=== PATIENT | male | born 1995 ===

== ENCOUNTER 2017-05-05 04:01 | Emergency (ER) | payer OTHER ==
[2017-05-05 04:23] VITALS: O2SAT 97
[2017-05-05] MEDS ORDERED: Morphine 4 MG/ML VIAL ONE (06:16)
[2017-05-05 06:20] LABS: BLOOD UREA NITROGEN 12 mg/dl (9-20); GFR AFRICAN-AMERICAN > 60; GFR NON-AFRICAN AMERICAN > 60
[2017-05-05 06:22] LABS: BASO % 0.2 % (0.0-2.0); EOS # 0.1 K/uL (0.0-0.7); EOS % 0.4 % (0.0-4.0); HEMOGLOBIN 15.7 g/dL (12.0-18.0); LYMPH % 11.2 % (20.0-40.0); MEAN CELL VOLUME 87.1 fl (80.0-94.0); MEAN CORPUSCULAR HEMOGLOBIN 29.8 pg (27.0-31.0); MEAN CORPUSCULAR HGB CONC 34.3 g/dL (33.0-37.0); MEAN PLATELET VOLUME 8.1 fl (7.2-11.7); MONO # 1.8 K/uL (0.0-0.8); MONO % 10.4 % (0.0-10.0); NEUT # 13.6 K/uL (1.8-7.0); NEUT % 77.8 % (50.0-75.0); NRBC % 0.1 % (0.0-0.0); RBC 5.27 Mil/uL (4.40-5.90); RED CELL DISTRIBUTION WIDTH 12.4 % (11.5-14.5); WHITE BLOOD COUNT 17.5 K/uL (4.8-10.8)
[2017-05-05] MEDS ORDERED: Iohexol 300 100 ML IJ ONE (06:32)
[2017-05-05] MEDS ORDERED: Sodium Chloride 0.9% 100 ML ONE (06:32)
[2017-05-05 06:54] LABS: INR 1.1 (0.9-1.2); PARTIAL THROMBOPLASTIN TIME 27.3 Seconds (25.6-37.1); PROTHROMBIN TIME 12.4 Seconds (9.8-13.1)
--- NOTE | 2017-05-05 07:13 | ED PDOC ---
HPI: Abdomen Time Seen by Provider: 05/05/17 04:17 Chief Complaint (Nursing): GI Problem Chief Complaint (Provider): abdominal pain History Per: Patient History/Exam Limitations: no limitations Onset/Duration Of Symptoms: Days (2x) Current Symptoms Are (Timing): Still Present Location Of Pain/Discomfort: Suprapubic Quality Of Discomfort: "Pain" Associated Symptoms: Diarrhea, Other (bloody stool ) Additional Complaint(s): 21 year old male presents to the ED complaining of abdominal pain onset two days ago. Reports of associated symptoms of diarrhea and bloody stool. Denies vomiting, fever, or sick contacts. Patient took Bismol for pain. Also states it the first time he has felt this way. PMD: Provider TBD Past Medical History Reviewed: Historical Data, Nursing Documentation, Vital Signs Vital Signs: Last Vital Signs Temp 98.6 F 05/05/17 09:00 Pulse 85 05/05/17 09:00 Resp 19 05/05/17 09:00 BP 132/74 05/05/17 09:00 Pulse Ox 97 05/05/17 11:28 - Medical History PMH: No Chronic Diseases - Surgical History Surgical History: No Surg Hx - Family History Family History: States: No Known Family Hx - Home Medications Home Medications: Ambulatory Orders Medication Instructions Recorded Acetaminophen [Tylenol 325mg tab] 650 mg PO Q6H PRN #50 tab 05/05/17 Ciprofloxacin [Cipro] 500 mg PO BID #20 tab 05/05/17 metroNIDAZOLE [Flagyl] 500 mg PO TID #10 tab 05/05/17 - Allergies Allergies/Adverse Reactions: Allergies Allergy/AdvReac Type Severity Reaction Status Date / Time No Known Allergies Allergy Verified 05/05/17 04:18 Review of Systems ROS Statement: Except As Marked, All Systems Reviewed And Found Negative Constitutional: Negative for: Fever Gastrointestinal: Positive for: Diarrhea. Negative for: Vomiting Genitourinary Male: Positive for: Other (bloody stool ) Physical Exam - Reviewed Nursing Documentation Reviewed: Yes Vital Signs Reviewed: Yes - Physical Exam Appears: Positive for: Non-toxic, No Acute Distress Head Exam: Positive for: ATRAUMATIC, NORMAL INSPECTION, NORMOCEPHALIC Skin: Positive for: Normal Color, Warm, Dry Eye Exam: Positive for: EOMI, Normal appearance, PERRL ENT: Positive for: Normal ENT Inspection Neck: Positive for: Normal, Painless ROM, Supple. Negative for: Decreased ROM Cardiovascular/Chest: Positive for: Regular Rate, Rhythm. Negative for: Murmur Respiratory: Positive for: Normal Breath Sounds. Negative for: Decreased Breath Sounds, Accessory Muscle Use, Respiratory Distress Gastrointestinal/Abdominal: Positive for: Tenderness (suprapublic ) Back: Positive for: Normal Inspection. 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 Negative for: Blood Streaked Stool Extremity: Positive for: Normal ROM. Negative for: Tenderness, Pedal Edema, Deformity Neurologic/Psych: Positive for: Alert, Oriented (x3) - Laboratory Results Result Diagrams: 05/05/17 06:03 05/05/17 06:03 - ECG O2 Sat by Pulse Oximetry: 97 (RA) Pulse Ox Interpretation: Normal Medical Decision Making Medical Decision Making: Time: 533 Initial Impression: Abdominal Pain and Bloody stool Differential Diagnosis includes but is not limited to: Colitis and Diverticulitis Initial Plan: --BBK --CT Abdomen & Pelvis --BMP --CBC w/ differential --PTT --Prothrombin Time [COAG] --Morphine 4mg IVP --Reevaluation Scribe Attestation: Documented by Ajith Peguero, acting as a scribe for Jimbo Valente MD Provider Scribe Attestation: All medical record entries made by the Scribe were at my direction and personally dictated by me. I have reviewed the chart and agree that the record accurately reflects my personal performance of the history, physical exam, medical decision making, and the department course for this patient. I have also personally directed, reviewed, and agree with the discharge instructions and disposition. Disposition - Clinical Impression Clinical Impression: Abdominal pain, Colitis - Patient ED Disposition Is Patient to be Admitted: Transfer of Care Counseled Patient/Family Regarding: Studies Performed, Diagnosis - Disposition Referrals: Lindsay [facility]anes MD [Medical Doctor[facility] - Disposition: Transfer of Care Disposition Time: 07:00 Condition: STABLE Prescriptions: Acetaminophen [Tylenol 325mg tab] 650 mg PO Q6H PRN #50 tab PRN Reason: Pain, Mild (1-3) Ciprofloxacin [Cipro] 500 mg PO BID #20 tab metroNIDAZOLE [Flagyl] 500 mg PO TID #10 tab Instructions: Bloody Stools, Adult (DC) Forms: [facility] ED School/Work Excuse Patient Signed Over To: Stephania Figueroa Handoff Comments: pending CT abdomen
--- NOTE | 2017-05-05 07:42 | ED PDOC ---
- Laboratory Results Result Diagrams: 05/05/17 06:03 05/05/17 06:03 - ECG O2 Sat by Pulse Oximetry: 97 (RA) Pulse Ox Interpretation: Normal Medical Decision Making Medical Decision Making: Time: 0700 --Patient endorsed to provider by Dr. Jimbo Valente. Pending lab and CT results. Time: 0825 --CT ABD/pelvis FINDINGS: Lung bases: Unremarkable. No mass. No consolidation. ABDOMEN: Liver: Fatty liver. Gallbladder and bile ducts: Unremarkable. No ductal dilation. Pancreas: Unremarkable. No mass. No ductal dilation. Spleen: Unremarkable. No splenomegaly. Adrenals: Unremarkable. No mass. Kidneys and ureters: Unremarkable. No solid mass. No hydronephrosis. Stomach and bowel: There is diffuse thickening of splenic flexure and left colon suspicious for infectious or inflammatory colitis. No obstruction. Appendix: The appendix not identified with complete certainty due to unopacified cecum and distal small bowel. There is lack of intra-abdominal fat. If clinical concern remains, a repeat study with thin sections after an appropriate time interval may allow oral contrast to opacify the cecum. PELVIS: Bladder: Partially decompressed bladder with bladder wall thickening. Correlation with urinalysis is recommended only if clinical cystitis is suspected. Reproductive: Possible hydrocele. ABDOMEN and PELVIS: Intraperitoneal space: Unremarkable. No free air. No significant fluid collection. Bones/joints: Possible L5-S1 disc herniation seen on image 73 series 602. No acute fracture. No dislocation. Soft tissues: Unremarkable. Vasculature: Unremarkable. No abdominal aortic aneurysm. Lymph nodes: Unremarkable. No enlarged lymph nodes. IMPRESSION: 1. There is diffuse thickening of splenic flexure and left colon suspicious for infectious or inflammatory colitis. Correlation with internal medicine/gastroenterology clinical evaluation and further workup or followup as recommended by patient's clinical data. Scribe Attestation: Documented by Jinny Goodwin, acting as a scribe for Stephania Figueroa MD. Provider Scribe Attestation: All medical record entries made by the Scribe were at my direction and personally dictated by me. I have reviewed the chart and agree that the record accurately reflects my personal performance of the history, physical exam, medical decision making, and the department course for this patient. I have also personally directed, reviewed, and agree with the discharge instructions and disposition. 11.00a - patient is feeling okay. Still has cramps on/off. Stool still has some blood. He denies vomiting. Exam - tenderness mostly in the LLQ area. There is no fever or chills. He is tolerating PO. Will d/c on Cipro and Flagyl and refer to Dr. Yanes and medicine. Disposition Doctor Will See Patient In The: Office Counseled Patient/Family Regarding: Diagnosis, Need For Followup, Rx Given - Clinical Impression Clinical Impression: Colitis - POA Present On Arrival: None - Disposition Referrals: Lindsay Yanes MD [Medical Doctor] - Heather Altamirano MD [Staff Provider] - Disposition: Routine/Home Disposition Time: 11:16 Condition: IMPROVED Prescriptions: Acetaminophen [Tylenol 325mg tab] 650 mg PO Q6H PRN #50 tab PRN Reason: Pain, Mild (1-3) Ciprofloxacin [Cipro] 500 mg PO BID #20 tab metroNIDAZOLE [Flagyl] 500 mg PO TID #10 tab Instructions: Bloody Stools, Adult (DC) Forms: [employer] ([employer]), [facility] ED School/Work Excuse
--- NOTE | 2017-05-05 08:25 | CT ---
EXAM: CT Abdomen and Pelvis With Intravenous Contrast CLINICAL HISTORY: 21 years old, male; Signs and symptoms; Other: Rectal bleeding; Additional info: Lower abd pain rectal bleeding TECHNIQUE: Axial computed tomography images of the abdomen and pelvis with intravenous contrast. All CT scans at this facility use one or more dose reduction techniques, viz.: automated exposure control; ma/kV adjustment per patient size (including targeted exams where dose is matched to indication; i.e. head); or iterative reconstruction technique. 604 images are submitted. Coronal and sagittal reformatted images were created and reviewed. CONTRAST: 95 mL of PODB209 administered intravenously. COMPARISON: No relevant prior studies available. FINDINGS: Lung bases: Unremarkable. No mass. No consolidation. ABDOMEN: Liver: Fatty liver. Gallbladder and bile ducts: Unremarkable. No ductal dilation. Pancreas: Unremarkable. No mass. No ductal dilation. Spleen: Unremarkable. No splenomegaly. Adrenals: Unremarkable. No mass. Kidneys and ureters: Unremarkable. No solid mass. No hydronephrosis. Stomach and bowel: There is diffuse thickening of splenic flexure and left colon suspicious for infectious or inflammatory colitis. No obstruction. Appendix: The appendix not identified with complete certainty due to unopacified cecum and distal small bowel. There is lack of intra-abdominal fat. If clinical concern remains, a repeat study with thin sections after an appropriate time interval may allow oral contrast to opacify the cecum. PELVIS: Bladder: Partially decompressed bladder with bladder wall thickening. Correlation with urinalysis is recommended only if clinical cystitis is suspected. Reproductive: Possible hydrocele. ABDOMEN and PELVIS: Intraperitoneal space: Unremarkable. No free air. No significant fluid collection. Bones/joints: Possible L5-S1 disc herniation seen on image 73 series 602. No acute fracture. No dislocation. Soft tissues: Unremarkable. Vasculature: Unremarkable. No abdominal aortic aneurysm. Lymph nodes: Unremarkable. No enlarged lymph nodes. IMPRESSION: 1. There is diffuse thickening of splenic flexure and left colon suspicious for infectious or inflammatory colitis. Correlation with internal medicine/gastroenterology clinical evaluation and further workup or followup as recommended by patient's clinical data.
[2017-05-05 11:35] VITALS: BP 132/74; PULSE 85; RESP 19; TEMP 98.6
== END 2017-05-05 11:36 | disposition home or self-care (01) ==
LOC: H.ER 04:01
DX: K52.9 Noninfective gastroenteritis and colitis, unspecified (principal)
CPT/HCPCS: 74177; 80048; 85025; 85610; 85730; 86850; 86900; 96374; 99284; J2270; Q9967